=== PATIENT | male | born 1990 | race African-American/Black ===

== ENCOUNTER 2018-01-02 10:37 | Emergency (ER) | payer OTHER ==
[2018-01-02 11:20] LABS: Bilirubin Negative (Negative); Blood, Urine Negative (Negative); Clarity CLEAR (Clear); Glucose, Urine (Dipstick) Negative (Negative); Leukocyte Negative (Negative); Nitrite Negative (Negative); Protein, Urine (Dipstick) Negative (Neg-Trace); Specific Gravity, Urine 1.024 (1.002-1.036); pH, Urine 5.5 (5.0-9.0)
--- NOTE | 2018-01-02 12:13 | ULT ---
SCROTAL ULTRASOUND: INDICATION: Left testicular pressure. TECHNIQUE: Bonilla scale, color Doppler, and spectral Doppler images were obtained in the scrotum. FINDINGS: No extra testicular mass or torsion is evident. The right testicle measures 3.5 x 3.2 x 1.1 cm. The left testicle measures 4.6 x 3 x 2.0 cm. Visualized left epididymi bilaterally appear within normal limits. There is a mild-sized left-sided varicocele. IMPRESSION: 1. Mild left-sided varicocele. 2. No intratesticular mass or torsion demonstrated. POS: [facility]
[2018-01-02] MEDS ORDERED: Ibuprofen 200 MG TAB ONE (12:37)
[2018-01-06 01:18] LABS: Chlamydia by PCR Not Detected (NotDetected); GC by PCR Not Detected (NotDetected)
== END 2018-01-02 12:45 | disposition home or self-care (01) ==
LOC: ERS 10:37
DX: I86.1 Scrotal varices (principal)
CPT/HCPCS: 76870; 81003; 87086; 87491; 87591; 93976